=== PATIENT | female | born 1975 | race Caucasian/White ===

== ENCOUNTER 2020-04-17 18:42 | Emergency (ER) | payer SELFPAY ==
[~2020-04-17] VITALS: Ht 170.2 cm; Wt 71.0 kg
[2020-04-17] MEDS ORDERED: SODIUM CHLORIDE 0.9% 1,000 ML IV ONE (20:30)
[2020-04-17 21:07] LABS: BASOPHILS % 0.6 % (0.0-2.0); EOSINOPHILS % 0.6 % (0.0-5.0); HEMATOCRIT. 39.4 % (36.0-48.0); HEMOGLOBIN. 13.4 g/dL (12.0-16.0); LYMPHOCYTES % 30.7 % (20.0-50.0); MEAN CORPUSCULAR HEMOGLOBIN 27.5 pg (28.0-32.0); MEAN PLATELET VOLUME 8.7 fl (7.4-10.4); MONOCYTES % 8.6 % (2.0-8.0); NEUTROPHILS % 59.5 % (40.0-76.0); PLATELET 239 x1000/uL (130-400); RED BLOOD CELL COUNT 4.87 mill/uL (4.2-5.4)
[2020-04-17 21:08] LABS: CHLORIDE 107 mEq/L (98-107)
[2020-04-17 21:24] LABS: HCG SCREEN NEGATIVE
[2020-04-17 23:09] VITALS: BP 135/78
== END 2020-04-17 23:33 | disposition home or self-care (01) ==
LOC: ER 18:42
DX: R55 Syncope and collapse (principal)
CPT/HCPCS: 36415; 80053; 84703; 85025; 93005; 99284; J7030; Z7610